=== PATIENT | male | born 1970 | race Caucasian/White ===

== ENCOUNTER 2017-05-21 14:53 | Emergency (ER) | payer OTHER ==
[~2017-05-21] VITALS: Ht 188 cm; Wt 117.9 kg
--- NOTE | 2017-05-21 15:00 | NUR ---
PT TO ED C/O ASTHMA ATTACK X THIS AM, TOOK BREATHING TREATMENT AT HOME. VSS
[2017-05-21] MEDS ORDERED: predniSONE 20 MG TABLET ONE (15:42)
[2017-05-21] MEDS ORDERED: predniSONE 20 MG TABLET PO ONE (16:00)
[2017-05-21] MEDS ORDERED: ALBUTEROL FS 2.5 MG/3 ML VIAL.NEB NEB ONE (16:00)
[2017-05-21] MEDS ORDERED: IPRATROPIUM NEB FS 0.5 MG/2.5 ML AMPUL.NEB NEB ONE (16:00)
[2017-05-21] MEDS ORDERED: IPRATROPIUM NEB FS 0.5 MG/2.5 ML AMPUL.NEB ONE (16:01)
[2017-05-21] MEDS ORDERED: ALBUTEROL FS 2.5 MG/3 ML VIAL.NEB ONE (16:01)
[2017-05-21 16:55] VITALS: BP 124/80
--- NOTE | 2017-05-21 16:55 | NUR ---
Patient discharged to home in stable condition. Written and verbal after care instructions given. Patient verbalizes understanding of instruction.
== END 2017-05-21 16:56 | disposition home or self-care (01) ==
LOC: ER 14:55
DX: J45.901 Unspecified asthma with (acute) exacerbation (principal); J11.1 Influenza due to unidentified influenza virus with other respiratory manifestations
CPT/HCPCS: A4606; Z7610